=== PATIENT | male | born 1990 | race Caucasian/White ===

== ENCOUNTER 2021-02-25 13:02 | Emergency (ER) | payer MEDICAID ==
[~2021-02-25] VITALS: Ht 170.2 cm; Wt 63.5 kg
[2021-02-25 13:04] VITALS: BP 126/93
[2021-02-25] MEDS ORDERED: NAPR-54 PO (14:08)
[2021-02-25 14:17] VITALS: BP 130/90
== END 2021-02-25 14:17 | disposition home or self-care (01) ==
LOC: MED 13:02
DX: S80.11XA Contusion of right lower leg, initial encounter (principal); Z90.49 Acquired absence of other specified parts of digestive tract; V23.4XXA Motorcycle driver injured in collision with car, pick-up truck or van in traffic accident, initial encounter; Y93.55 Activity, bike riding; Y92.89 Other specified places as the place of occurrence of the external cause; Y99.8 Other external cause status
CPT/HCPCS: 73590; 99283